=== PATIENT | male | born 1955 | race Caucasian/White ===

== ENCOUNTER 2018-02-18 04:28 | Outpatient (CLI) | payer OTHER | END 2018-02-18 04:29 | disposition critical access hospital (66) | LOC: EMS 04:28 | PROVIDERS: ATTEND Surgery | DX: R06.00 Dyspnea, unspecified (principal); R07.89 Other chest pain; R11.2 Nausea with vomiting, unspecified; R19.7 Diarrhea, unspecified | CPT/HCPCS: A0425; A0427 ==

== ENCOUNTER 2018-02-18 04:52 | Emergency (ER) | payer OTHER ==
[2018-02-18] MEDS ORDERED: ONDANSETRON 4 MG/2 ML VIAL IVP STA (04:57)
[2018-02-18] MEDS ORDERED: SODIUM CHLORIDE 0.9% 1,000 ML IV ONE (04:57)
[2018-02-18 05:25] LABS: BASOPHILS % (AUTO) 0.5 %; EOSINOPHILS % (AUTO) 0.6 %; HGB - HEMOGLOBIN 14.1 g/dL (14.0-18.0); LYMPHOCYTES # (AUTO) 1.5 10^3/uL (1.5-3.5); LYMPHOCYTES % (AUTO) 23.7 %; MEAN CORPUSCULAR HEMOGLOBIN 30.8 pg (27.0-31.0); MEAN CORPUSCULAR HGB CONC 34.7 g/dL (32.0-36.0); MEAN CORPUSCULAR VOLUME 88.8 fL (80.0-94.0); MEAN PLATELET VOLUME 7.6 fL (7.4-11.4); MONOCYTES # (AUTO) 0.4 10^3/uL (0.0-1.0); MONOCYTES % (AUTO) 6.4 %; NEUTROPHILS # (AUTO) 4.4 10^3/uL (1.5-6.6); NEUTROPHILS % (AUTO) 68.8 %; PLT - PLATELET COUNT 176 10^3/uL (130-450); RED BLOOD COUNT 4.58 10^6/uL (4.70-6.10); RED CELL DISTRIBUTION WIDTH 13.5 % (12.0-15.0); WHITE BLOOD COUNT 6.4 x10^3/uL (4.8-10.8)
[2018-02-18 05:39] LABS: ALBUMIN 3.4 g/dL (3.2-5.5); ALBUMIN/GLOBULIN RATIO 1.3 (1.0-2.2); BILIRUBIN,TOTAL 0.4 mg/dL (0.2-1.0); CALCIUM 8.4 mg/dL (8.5-10.3); TOTAL PROTEIN 6.1 g/dL (6.7-8.2)
[2018-02-18] MEDS ORDERED: MORPHINE 10 MG/ML VIAL IVP STA (05:54)
[2018-02-18] MEDS ORDERED: POTASSIUM CHLORIDE 20 MEQ TABLET PO STA (05:54)
--- NOTE | 2018-02-18 06:17 | ED Physician Documentation ---
History of Present Illness - Stated complaint Stated Complaint: N/V/D - Chief complaint Chief Complaint: Abd Pain - History obtained from History obtained from: Patient - Additonal information Additional information: 62-year-old male presents the emergency department with nausea, vomiting and diarrhea which started around 3 AM. The patient had associated epigastric cramping and felt lightheaded and dizzy with the vomiting and diarrhea. The patient currently denies any active pain. No specific triggering factors. The patient reports symptoms as moderate but much improved now. Review of Systems Constitutional: reports: Chills, Fatigue. denies: Fever Eyes: denies: Discharge Ears: denies: Ear pain Nose: denies: Congestion Throat: denies: Sore throat Cardiac: denies: Chest pain / pressure Respiratory: denies: Dyspnea GI: reports: Abdominal Pain, Nausea, Vomiting, Diarrhea : denies: Dysuria Skin: denies: Rash Neurologic: reports: Generalized weakness PD PAST MEDICAL HISTORY - Past Medical History Past Medical History: Yes Cardiovascular: Hypertension - Past Surgical History Past Surgical History: Yes - Present Medications Home Medications: Ambulatory Orders Medication Instructions Recorded Confirmed Metoprolol Tartrate 25 mg PO DAILY 11/29/14 03/01/15 hydroCHLOROthiazide 25 mg PO DAILY 11/29/14 03/01/15 [Hydrochlorothiazide] Ondansetron Odt [Zofran] 4 mg TL Q6H PRN #30 tablet 02/18/18 - Allergies Allergies/Adverse Reactions: Allergies Allergy/AdvReac Type Severity Reaction Status Date / Time No Known Drug Allergies Allergy Verified 02/18/18 05:14 - Social History Does the pt smoke?: No Smoking Status: Never smoker Does the pt drink ETOH?: No Does the pt have substance abuse?: No - Immunizations Immunizations are current?: Yes - POLST Patient has POLST: No PD ED PE NORMAL - General General: Alert and oriented X 3, No acute distress - HEENT HEENT: Atraumatic, PERRL, EOMI, Ears normal - Cardiac Cardiac: RRR, Strong equal pulses - Respiratory Respiratory: No respiratory distress, Clear bilaterally - Abdomen Abdomen: Soft, Non tender, Non distended - Derm Derm: Normal color - Extremities Extremities: No deformity, Normal ROM s pain - Neuro Neuro: Alert and oriented X 3, Normal speech - Psych Psych: Normal affect Results - Vitals Vitals: Vital Signs - 24 hr 02/18/18 02/18/18 02/18/18 04:53 05:12 06:09 Temperature 36.5 C Heart Rate 56 L 47 L 48 L Respiratory 22 13 14 Rate Blood Pressure 152/89 H 147/76 H O2 Saturation 95 98 97 Oxygen O2 Source Room air - EKG (time done) No standard instances Rate: Rate (enter#) (49 BPM ) Rhythm: Sinus bradycardia [place]: Normal Intervals: Normal AR QRS: Normal Ischemia: Normal ST segments - Labs Labs: Laboratory Tests 02/18/18 02/18/18 02/18/18 05:20 05:20 05:20 WBC 6.4 RBC 4.58 L Hgb 14.1 Hct 40.7 L MCV 88.8 MCH 30.8 MCHC 34.7 RDW 13.5 Plt Count 176 MPV 7.6 Neut # (Auto) 4.4 Lymph # (Auto) 1.5 [place] # (Auto) 0.4 Eos # (Auto) 0.0 Baso # (Auto) 0.0 Absolute Nucleated RBC 0.00 Nucleated RBC % 0.0 Sodium 138 Potassium 3.0 L Chloride 102 Carbon Dioxide 26 Anion Gap 10.0 BUN 15 Creatinine 1.0 Estimated GFR (MDRD) 76 L Glucose 123 H Calcium 8.4 L Total Bilirubin 0.4 AST 26 ALT 23 Alkaline Phosphatase 56 Troponin I < 0.04 Total Protein 6.1 L Albumin 3.4 Globulin 2.7 Albumin/Globulin Ratio 1.3 Lipase 30 - Rads (name of study) Acute Abdominal Series Radiology: Final report received (No acute process seen in the chest or abdomen. ) PD MEDICAL DECISION MAKING - ED course ED course: The patient's workup does not reveal any significant abnormality, the patient's symptoms are more suggestive of a viral process or possibly a foodborne reaction. On reevaluation the patient is resting comfortably and still has no active abdominal pain. The patient still reports some mild nausea. Presently, the patient appears appropriate for discharge and ongoing outpatient management. Presently, there is no findings to suggest a intra-abdominal process that would necessitate CT scan. I discussed the findings with the patient and recommended close follow-up with primary care. I discussed warning signs and recommended returning to the emergency department immediately for any worsening or any concerns. - Sepsis Event Vital Signs: Vital Signs - 24 hr 02/18/18 02/18/18 02/18/18 04:53 05:12 06:09 Temperature 36.5 C Heart Rate 56 L 47 L 48 L Respiratory 22 13 14 Rate Blood Pressure 152/89 H 147/76 H O2 Saturation 95 98 97 Oxygen O2 Source Room air Departure - Departure Disposition: 01 Home, Self Care Clinical Impression: Nausea vomiting and diarrhea, Abdominal cramping, Hypokalemia Condition: Good Instructions: Abdominal Pain, ED Diet Vomiting Diarrhea, Hypokalemia Dc Prescriptions: Ondansetron Odt [Zofran] 4 mg TL Q6H PRN #30 tablet PRN Reason: Nausea / Vomiting Comments: Please follow-up with primary care this week for recheck. Please return back to the emergency department immediately for increasing nausea, vomiting, inability to hydrate, abdominal pain, worsening symptoms or any concerns.
--- NOTE | 2018-02-18 06:36 | XRAY Report ---
Reason: n/v/d Procedure Date: 02/18/2018 Accession Number: [id number] / [id number] Procedure: XR - Abdomen Acute CPT Code: FULL RESULT: EXAM: ABDOMINAL SERIES AND PA CHEST EXAM DATE: 02/18/2018 06:05 AM. CLINICAL HISTORY: Nausea, vomiting, diarrhea. COMPARISON: CHEST 2 VIEW PA/LAT 11/29/2014 12:53 PM. TECHNIQUE: 2 views abdomen and 1 view chest. FINDINGS: CHEST: Lungs/Pleura: No focal opacities. No effusion or pneumothorax. Mediastinum: Within exam limitations, cardiomediastinal contour is normal. ABDOMEN: Bowel Gas Pattern: Within normal limits. No dilated loops or abnormal fluid levels. Free Air: None. Other: Previous right proximal femur surgery. IMPRESSION: No acute process seen in the chest or abdomen. RADIA
[2018-02-18] MEDS ORDERED: diphenhydrAMINE INJ 50 MG/ML VIAL IVP STA (06:39)
[2018-02-18] MEDS ORDERED: PROMETHAZINE INJ 25 MG in SODIUM CHLORIDE 0.9% 50 ML IV STA (06:39)
[2018-02-18 07:20] VITALS: BP 129/85
== END 2018-02-18 07:36 | disposition home or self-care (01) ==
LOC: EDUNIT# → ED 04:52
DX: R11.2 Nausea with vomiting, unspecified (principal); R19.7 Diarrhea, unspecified; R10.9 Unspecified abdominal pain; E87.6 Hypokalemia; I10 Essential (primary) hypertension
CPT/HCPCS: 36415; 74022; 80053; 83690; 84484; 85025; 93005; 96361; 96365; 96375; 99283; A9270; J1200; J7040

== ENCOUNTER 2018-08-14 10:53 | Outpatient (CLI) | payer OTHER | END 2018-08-14 10:54 | disposition home or self-care (01) | LOC: SC 10:53 | PROVIDERS: ATTEND Internal Medicine Pulmonary Disease | DX: G47.33 Obstructive sleep apnea (adult) (pediatric) (principal); E66.01 Morbid (severe) obesity due to excess calories; Z68.41 Body mass index [BMI] 40.0-44.9, adult | CPT/HCPCS: 99203; 99212 ==

== ENCOUNTER 2018-09-02 20:20 | Outpatient (CLI) | payer OTHER | END 2018-09-02 20:21 | disposition home or self-care (01) | LOC: SC 20:20 | PROVIDERS: ATTEND Internal Medicine Pulmonary Disease | DX: G47.61 Periodic limb movement disorder (principal) | CPT/HCPCS: 95810 ==

== ENCOUNTER 2018-09-24 12:56 | Outpatient (CLI) | payer OTHER | END 2018-09-24 12:57 | disposition home or self-care (01) | LOC: SC 12:56 | PROVIDERS: ATTEND Internal Medicine Pulmonary Disease | DX: G47.33 Obstructive sleep apnea (adult) (pediatric) (principal) | CPT/HCPCS: 99212; 99213 ==

== ENCOUNTER 2019-08-04 17:45 | Emergency (ER) | payer OTHER ==
[2019-08-04 18:12] VITALS: BP 167/106
--- NOTE | 2019-08-04 18:31 | ED Physician Documentation ---
PD HPI URI - Stated complaint Stated Complaint: COLD SYMPTOMS - Chief complaint Chief Complaint: Fever - History obtained from History obtained from: Patient - History of Present Illness Timing - onset: Other (Sick for about 4 days with nonproductive cough, runny nose and sneezing. Also low-grade fevers. His is sick with a similar illness. No recent travel.) Review of Systems Constitutional: reports: Myalgias. denies: Chills, Fatigue Nose: reports: Rhinorrhea / runny nose Throat: denies: Sore throat Respiratory: reports: Cough. denies: Dyspnea PD PAST MEDICAL HISTORY - Past Medical History Cardiovascular: Hypertension - Past Surgical History Past Surgical History: Yes - Present Medications Home Medications: Ambulatory Orders Medication Instructions Recorded Confirmed Metoprolol Tartrate 25 mg PO DAILY 11/29/14 03/01/15 hydroCHLOROthiazide 25 mg PO DAILY 11/29/14 03/01/15 [Hydrochlorothiazide] Ondansetron Odt [Zofran] 4 mg TL Q6H PRN #30 tablet 02/18/18 - Allergies Allergies/Adverse Reactions: Allergies Allergy/AdvReac Type Severity Reaction Status Date / Time No Known Drug Allergies Allergy Verified 08/04/19 18:09 - Social History Does the pt smoke?: No Smoking Status: Never smoker Does the pt drink ETOH?: No Does the pt have substance abuse?: No - Immunizations Immunizations are current?: Yes - POLST Patient has POLST: No PD ED PE NORMAL - Vitals Vital signs reviewed: Yes - General General: Alert and oriented X 3, No acute distress - HEENT HEENT: Ears normal, Pharynx benign - Neck Neck: Supple, no meningeal sign, No bony TTP - Cardiac Cardiac: RRR, No murmur - Respiratory Respiratory: No respiratory distress, Clear bilaterally - Abdomen Abdomen: Non tender - Derm Derm: No rash - Neuro Neuro: Alert and oriented X 3, Normal speech Results - Vitals Vitals: Vital Signs - 24 hr 08/04/19 18:09 Temperature 37.1 C Heart Rate 62 Respiratory 18 Rate Blood Pressure 167/106 H O2 Saturation 98 Oxygen O2 Source Room air PD MEDICAL DECISION MAKING - ED course ED course: 63-year-old gentleman with viral URI, his significant other is sick with a similar illness. There is nothing to suggest a bacterial etiology, coronavirus is considered but they do not fit his current ALISIA criteria for testing. Departure - Departure Disposition: 01 Home, Self Care Clinical Impression: Viral syndrome Condition: Good Record reviewed to determine appropriate education?: Yes Instructions: ED Viral Syndrome Comments: Tylenol or ibuprofen as needed for the aches and pains. Drink plenty of fluids. Return if you worsen or develop high fevers or significant shortness of breath.
== END 2019-08-04 18:37 | disposition home or self-care (01) ==
LOC: ED 17:45
DX: B34.9 Viral infection, unspecified (principal); I10 Essential (primary) hypertension
CPT/HCPCS: 87275; 87276; 99282; 99283

== ENCOUNTER 2019-08-18 14:43 | Emergency (ER) | payer OTHER ==
[2019-08-18 14:50] VITALS: BP 148/86
--- NOTE | 2019-08-18 15:18 | ED Physician Documentation ---
History of Present Illness - Stated complaint Stated Complaint: SCHUSTER, RUNNY NOSE, LOWER BACK/SIDE PX - Chief complaint Chief Complaint: General - History obtained from History obtained from: Patient (He has been sick for about 2 weeks with cough, runny nose. He had some chills earlier but not currently. He is mildly short of breath and has a productive cough. He feels like it is in his bronchial tubes, not his lungs.) Review of Systems Constitutional: reports: Fatigue. denies: Fever, Chills Nose: reports: Rhinorrhea / runny nose Throat: denies: Sore throat Cardiac: denies: Chest pain / pressure, Palpitations Respiratory: reports: Dyspnea, Cough PD PAST MEDICAL HISTORY - Past Medical History Cardiovascular: Hypertension - Past Surgical History Past Surgical History: Yes - Present Medications Home Medications: Ambulatory Orders Medication Instructions Recorded Confirmed Albuterol Sulf [Ventolin Hfa 1 - 2 puffs INH Q4HR PRN #1 inhaler 08/18/19 Inhaler] Lisinopril [Prinivil] mg PO 08/18/19 - Allergies Allergies/Adverse Reactions: Allergies Allergy/AdvReac Type Severity Reaction Status Date / Time No Known Drug Allergies Allergy Verified 08/18/19 14:50 - Social History Does the pt smoke?: No Smoking Status: Never smoker Does the pt drink ETOH?: No Does the pt have substance abuse?: No - Immunizations Immunizations are current?: Yes - POLST Patient has POLST: No PD ED PE NORMAL - Vitals Vital signs reviewed: Yes - General General: Alert and oriented X 3, No acute distress - HEENT HEENT: PERRL, EOMI, Ears normal - Neck Neck: Supple, no meningeal sign, No bony TTP - Cardiac Cardiac: RRR, No murmur - Respiratory Respiratory: No respiratory distress, Clear bilaterally - Abdomen Abdomen: Non tender - Derm Derm: Normal color, Warm and dry, No rash - Extremities Extremities: No edema, No calf tenderness / cord - Neuro Neuro: Alert and oriented X 3, Normal speech - Psych Psych: Normal mood, Normal affect Results - Vitals Vitals: Vital Signs - 24 hr 08/18/19 14:48 Temperature 36.8 C Heart Rate 68 Respiratory 16 Rate Blood Pressure 148/86 H O2 Saturation 97 Oxygen O2 Source Room air - Rads (name of study) 2v chest Radiology: EMP read contemporaneously (normal) PD MEDICAL DECISION MAKING - ED course ED course: 63-year-old gentleman with apparent viral bronchitis, vital signs and exam are reassuring as is his chest x-ray. Conservative care and a beta agonist were prescribed. Signs and symptoms to watch out and return for were discussed. Departure - Departure Disposition: 01 Home, Self Care Clinical Impression: Viral bronchitis Condition: Good Record reviewed to determine appropriate education?: Yes Instructions: ED Upper Resp Infec No Abx Tx Prescriptions: Albuterol Sulf [Ventolin Hfa Inhaler] 1 - 2 puffs INH Q4HR PRN #1 inhaler PRN Reason: Shortness Of Air/Wheezing Comments: Your chest x-ray is clear, there is no evidence of a bacterial infection, return if worsening or if you run a fever again. Until then the albuterol inhaler may help with the feeling of congestion in your bronchial tubes. Follow-up with your doctor in 1 week. Blood pressure check with them then too. Discharge Date/Time: 08/18/19 16:11
--- NOTE | 2019-08-18 15:57 | XRAY Report ---
Reason: cough Procedure Date: 08/18/2019 Accession Number: [id number] / [id number] Procedure: XR - Chest 2 View X-Ray CPT Code: 80058 Final Report FULL RESULT: EXAM: CHEST RADIOGRAPHY EXAM DATE: 08/18/2019 03:22 PM. CLINICAL HISTORY: Cough. COMPARISON: ABDOMEN ACUTE 02/18/2018 5:28 AM CHEST 2 VIEW PA/LAT 11/29/2014 12:53 PM. TECHNIQUE: 2 views. FINDINGS: Lungs/Pleura: No focal opacities evident. No pleural effusion. No pneumothorax. Normal volumes. Mediastinum: Heart and mediastinal contours are unremarkable. Other: None. IMPRESSION: Negative chest. RADIA
== END 2019-08-18 16:11 | disposition home or self-care (01) ==
LOC: ED 14:43
DX: I10 Essential (primary) hypertension (principal); J20.8 Acute bronchitis due to other specified organisms
CPT/HCPCS: 71046; 99283; 99284

== ENCOUNTER 2020-01-26 03:44 | Emergency (ER) | payer OTHER ==
--- NOTE | 2020-01-26 03:45 | ED Physician Documentation ---
History of Present Illness - Stated complaint Stated Complaint: CP - History obtained from History obtained from: Patient - Additonal information Additional information: 64-year-old male with chief complaint of shortness of breath progressively worsening over the last 4 days with exertional dyspnea without cough or fever denies any history of [place] or stroke or chronic lung disease. Tonight he woke up from sleep and came to the emergency department for evaluation denies any chest pain currently. Reports shortness of breath on deep inspiration. Review of Systems Constitutional: reports: Reviewed and negative Eyes: reports: Reviewed and negative Ears: reports: Reviewed and negative Nose: reports: Reviewed and negative Throat: reports: Reviewed and negative Cardiac: reports: Reviewed and negative Respiratory: reports: Dyspnea GI: reports: Reviewed and negative : reports: Reviewed and negative Skin: reports: Reviewed and negative Musculoskeletal: reports: Reviewed and negative Neurologic: reports: Reviewed and negative Psychiatric: reports: Reviewed and negative Endocrine: reports: Reviewed and negative Immunocompromised: reports: Reviewed and negative PD PAST MEDICAL HISTORY - Past Medical History Cardiovascular: Hypertension - Past Surgical History Past Surgical History: Yes - Present Medications Home Medications: Ambulatory Orders Medication Instructions Recorded Confirmed Albuterol Sulf [Ventolin Hfa 1 - 2 puffs INH Q4HR PRN #1 inhaler 08/18/19 Inhaler] Lisinopril [Prinivil] mg PO 08/18/19 Apixaban [Eliquis] 10 mg PO BID 30 Days #60 tablet 01/26/20 - Allergies Allergies/Adverse Reactions: Allergies Allergy/AdvReac Type Severity Reaction Status Date / Time No Known Drug Allergies Allergy Verified 01/26/20 03:54 - Social History Does the pt smoke?: No Smoking Status: Never smoker Does the pt drink ETOH?: No Does the pt have substance abuse?: No - Immunizations Immunizations are current?: Yes - POLST Patient has POLST: No PD ED PE NORMAL - Vitals Vital signs reviewed: Yes - General General: Alert and oriented X 3, No acute distress, Well developed/nourished - HEENT HEENT: PERRL - Neck Neck: Supple, no meningeal sign, No adenopathy, Thyroid normal, No JVD, No bruit - Cardiac Cardiac: RRR, No murmur, Strong equal pulses - Respiratory Respiratory: No respiratory distress, Clear bilaterally - Abdomen Abdomen: Normal bowel sounds, Soft, Non tender, Non distended, No organomegaly, Other (no midline abdominal pulsatile mass) - Derm Derm: Warm and dry - Extremities Extremities: No deformity, No tenderness to palpate, Normal ROM s pain, No edema, No calf tenderness / cord - Neuro Neuro: Alert and oriented X 3, still operator gin 2-12 intact, No motor deficit, No sensory deficit, Normal speech - Psych Psych: Normal mood, Normal affect Results - Vitals Vitals: Vital Signs - 24 hr 01/26/20 01/26/20 01/26/20 03:54 03:57 05:07 Temperature 36.9 C Heart Rate 70 76 69 Respiratory 18 18 16 Rate Blood Pressure 162/94 H 162/94 H 139/71 H O2 Saturation 98 97 97 01/26/20 01/26/20 01/26/20 06:22 08:00 09:52 Temperature Heart Rate 62 60 63 Respiratory 16 15 21 Rate Blood Pressure 133/75 H 147/76 H 150/81 H O2 Saturation 97 97 98 01/26/20 01/26/20 11:00 12:12 Temperature 36.8 C Heart Rate 62 60 Respiratory 17 22 Rate Blood Pressure 138/75 H 160/89 H O2 Saturation 99 98 Oxygen O2 Source Room air - EKG (time done) 03:52 Rate: Other (no STEMI) - Labs Labs: Laboratory Tests 01/26/20 01/26/20 01/26/20 04:05 04:05 04:05 WBC 8.5 RBC 4.87 Hgb 15.2 Hct 44.3 MCV 91.0 MCH 31.2 H MCHC 34.3 RDW 12.6 Plt Count 201 MPV 9.2 Neut # (Auto) 5.7 Lymph # (Auto) 2.0 [place] # (Auto) 0.7 Eos # (Auto) 0.1 Baso # (Auto) 0.0 Absolute Nucleated RBC 0.00 Nucleated RBC % 0.0 PT 11.7 INR 1.0 APTT 27.1 D-Dimer 367.4 H Sodium 136 Potassium 3.8 Chloride 100 L Carbon Dioxide 26 Anion Gap 10.0 BUN 14 Creatinine 1.0 Estimated GFR (MDRD) 75 L Glucose 131 H Calcium 9.1 Total Bilirubin 0.5 AST 17 ALT 19 Alkaline Phosphatase 69 Total Creatine Kinase 163 Troponin I High Sens B-Natriuretic Peptide Total Protein 6.9 Albumin 3.8 Globulin 3.1 Albumin/Globulin Ratio 1.2 Lipase 28 01/26/20 01/26/20 04:05 04:05 WBC RBC Hgb Hct MCV MCH MCHC RDW Plt Count MPV Neut # (Auto) Lymph # (Auto) [place] # (Auto) Eos # (Auto) Baso # (Auto) Absolute Nucleated RBC Nucleated RBC % PT INR APTT D-Dimer Sodium Potassium Chloride Carbon Dioxide Anion Gap BUN Creatinine Estimated GFR (MDRD) Glucose Calcium Total Bilirubin AST ALT Alkaline Phosphatase Total Creatine Kinase Troponin I High Sens 4.0 B-Natriuretic Peptide 7 Total Protein Albumin Globulin Albumin/Globulin Ratio Lipase PD MEDICAL DECISION MAKING - ED course Complexity details: reviewed results, re-evaluated patient, considered differential (acs, pe, pna, bronchitis, chf, pleurisy, pleural effusion), d/w patient, d/w family, other (heart score 2, unable to PERC out secondary to age. patient signed out at shift change to dr. janina willis. ) ED course: 64 y/o m w sob, d dimer elevated, cta shows left sided pe. consulted hospitalist for recommendation. awaiting call back. patient signed out at shift change to dr. janina willis. patient updated on diagnosis and plan. Departure - Departure Disposition: Home, Self Care Clinical Impression: Pulmonary embolism and infarction DVT (deep venous thrombosis) Qualifiers: DVT location: lower extremity Affected thrombotic vein of extremity: calf muscle vein Chronicity: unspecified Laterality: right Qualified Code(s): I82.461 - Acute embolism and thrombosis of right calf muscular vein Condition: Stable Instructions: Embolism Pulmonary Dc Prescriptions: Apixaban [Eliquis] 10 mg PO BID 30 Days #60 tablet Comments: The CT scan of your chest shows a pulmonary embolism, or blood clot, in your left lung circulation. This appears to be coming from a blood clot you have in your leg. Your oxygen is good, and your other vital signs are normal. You have been evaluated by the grinder set up operator internal today, who does not feel that you require admission to the hospital at this time. You will be started on a "blood thinner" to help prevent further clot formation while your body gets rid of the clots that you have. Please follow-up with your primary care physician within the week for a recheck. If you begin to develop worsening shortness of breath or chest pain, or if you develop a fever and cough, please return to the emergency department. Discharge Date/Time: 01/26/20 12:20
[2020-01-26 04:16] LABS: BASOPHILS % (AUTO) 0.4 %; EOSINOPHILS # (AUTO) 0.1 10^3/uL (0.0-0.7); EOSINOPHILS % (AUTO) 0.7 %; HGB - HEMOGLOBIN 15.2 g/dL (14.0-18.0); LYMPHOCYTES % (AUTO) 23.9 %; MEAN CORPUSCULAR HEMOGLOBIN 31.2 pg (27.0-31.0); MEAN CORPUSCULAR HGB CONC 34.3 g/dL (32.0-36.0); MEAN PLATELET VOLUME 9.2 fL (7.4-11.4); MONOCYTES # (AUTO) 0.7 10^3/uL (0.0-1.0); MONOCYTES % (AUTO) 8.2 %; NEUTROPHILS # (AUTO) 5.7 10^3/uL (1.5-6.6); NEUTROPHILS % (AUTO) 66.2 %; PLT - PLATELET COUNT 201 10^3/uL (130-450); RED BLOOD COUNT 4.87 10^6/uL (4.70-6.10); RED CELL DISTRIBUTION WIDTH 12.6 % (12.0-15.0); WHITE BLOOD COUNT 8.5 x10^3/uL (4.8-10.8)
[2020-01-26 04:23] LABS: PT - PROTHROMBIN TIME 11.7 secs (9.9-12.6)
[2020-01-26 04:30] LABS: ALBUMIN 3.8 g/dL (3.2-5.5); ALBUMIN/GLOBULIN RATIO 1.2 (1.0-2.2); BILIRUBIN,TOTAL 0.5 mg/dL (0.2-1.0); CALCIUM 9.1 mg/dL (8.5-10.3); PARTIAL THROMBOPLASTIN TIME 27.1 secs (24.9-33.3); TOTAL PROTEIN 6.9 g/dL (6.7-8.2)
[2020-01-26 04:37] LABS: D-DIMER 367.4 ng/mL (200.0-255.0)
[2020-01-26] MEDS ORDERED: IOVERSOL 320 100 ML VIAL IVP ONE ×2 (05:10→05:52)
[2020-01-26] MEDS ORDERED: ENOXAPARIN 150 MG/ML SYRINGE SUBQ STA (07:09)
--- NOTE | 2020-01-26 07:41 | CT Report ---
PROCEDURE: ANGIO CHEST W/WO INDICATIONS: cp,sob, elevated d dimer CONTRAST: IV CONTRAST: Optiray 320 ml: 100 PO CONTRAST: *NO PO CONTRAST TECHNIQUE: After the administration of intravenous contrast, 2 mm thick sections acquired from the pulmonary api bita to the posterior costophrenic angles. 3-dimensional maximum intensity projection (MIP) coronal a nd sagittal reformats were then acquired through the thorax. For radiation dose reduction, the follow ing was used: automated exposure control, adjustment of mA and/or kV according to patient size. COMPARISON: Chest x-ray 01/26/2020 and 08/18/2019 FINDINGS: Image quality: Excellent. Pulmonary arteries: Defects noted within the segmental and subsegmental pulmonary arteries and left lower lobe compatible with pulmonary emboli. Lungs and pleura: Small area of consolidation noted in the posterior aspect of the left lung base whi ch could represent atelectasis or early pulmonary infarct. Trace left-sided pleural effusion. No pneu mothorax. Central and peripheral airways are patent. Mediastinum: Heart size is normal, without pericardial effusion. No mediastinal or hilar adenopathy . Thoracic aorta is normal in caliber and enhancement. Esophagus is normal in caliber, without hiat al hernia. Bones and chest wall: No suspicious bony lesions. Ribs and thoracic spine appear intact throughout. Spine degenerative disc disease and facet arthropathy are noted. The thyroid is normal. No axilla ry or supraclavicular adenopathy. Abdomen: Visualized upper abdominal solid organs appear normal in the early arterial phase of enhanc ement. IMPRESSION: 1. Abnormal study demonstrating pulmonary emboli in left lower lobe segmental and subsegmental pulmon yissel arteries. 2. Patchy consolidation in the left lung base which could represent atelectasis or early pulmonary in farct. 3. Trace left-sided pleural effusion. Reviewed by: Lauren Muir MD, PhD on 01/26/2020 7:40 AM PDT Approved by: Lauren Muir MD, PhD on 01/26/2020 7:40 AM PDT Station ID: [id number]
--- NOTE | 2020-01-26 09:58 | XRAY Report ---
PROCEDURE: Chest 1 View X-Ray INDICATIONS: Shortness of breath TECHNIQUE: One view of the chest was acquired. COMPARISON: 08/18/2019 and 11/29/2014. Correlation is also made with the accompanying chest CT angiogra m, 01/26/2020. Correlation is also made with abdomen plain films 02/18/2018 FINDINGS: Surgical changes and devices: None. Lungs and pleura: Low lung volumes can be seen, causing a carotid appearance to the lung markings. There is a small left-sided pleural effusion seen, which is much better demonstrated on the subsequen tly performed chest CT examination. No pneumothorax is seen. Mediastinum: The aorta is prominent and tortuous. The cardiac contours are within normal limits. Bones and chest wall: No suspicious bony lesions. Age-appropriate degenerative changes are seen. Overlying soft tissues appear unremarkable. IMPRESSION: Low lung volumes and a small left-sided pleural effusion. Note: No significant discrepancy from the preliminary report. Reviewed by: Haim Scales MD on 01/26/2020 8:57 AM MAREK Approved by: Haim Scales MD on 01/26/2020 8:57 AM MAREK Station ID: [id number]
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
--- NOTE | 2020-01-26 12:11 | Ultrasound Report ---
PROCEDURE: Duplex Ext Veins Bilateral INDICATIONS: Positive for pulmonary embolism. Evaluate for deep venous thrombosis. TECHNIQUE: Real-time imaging, as well as color and pulse Doppler interrogation, were performed of the deep veins of both legs from the inguinal ligament to the popliteal fossa. COMPARISON: Correlation is made with chest CT angiogram 01/26/2020. FINDINGS: The deep veins are normally compressible, and free of intraluminal thrombus. Color and pu lse Doppler demonstrate normal phasic intravascular flow. There is normal augmentation response to d istal compression maneuver. Superficial venous thrombosis can be seen on the right, with calf vein thrombosis. The right peronea l vein is not seen. The left peroneal vein is not seen. The left calf veins otherwise are unremarkable. IMPRESSION: No findings of deep venous thrombosis are seen. Superficial venous thrombosis can be seen involving the right superficial calf vein. Note: Concordant preliminary findings given by the baggage security checker upon the completion of the examination to Dr. Mix at 10:40 AM on 01/26/2020. Reviewed by: Haim Scales MD on 01/26/2020 11:10 AM [facility] Approved by: Haim Scales MD on 01/26/2020 11:10 AM [facility] Station ID: [id number]
[2020-01-26 12:13] VITALS: BP 160/89
== END 2020-01-26 12:20 | disposition home or self-care (01) ==
LOC: ED 03:44
DX: R07.81 Pleurodynia (principal); I51.7 Cardiomegaly; R94.31 Abnormal electrocardiogram [ECG] [EKG]
CPT/HCPCS: 36415; 71045; 71275; 80053; 82550; 83690; 83880; 84484; 85025; 85379; 85610; 85730; 93005; 93970; 96372; 99284; 99285; J1650; Q9967

== ENCOUNTER 2020-02-03 16:35 | Emergency (ER) | payer OTHER ==
[2020-02-03 17:11] LABS: BILIRUBIN,URINE NEGATIVE (NEGATIVE); GLUCOSE, URINE (UA) NEGATIVE (NEGATIVE); KETONES,URINE (UA) NEGATIVE (NEGATIVE); LEUKOCYTE ESTERASE, URINE NEGATIVE (NEGATIVE); NITRITE,URINE NEGATIVE (NEGATIVE); OCCULT BLOOD,URINE NEGATIVE (NEGATIVE); PH,URINE 6.5 PH (5.0-7.5); PROTEIN,URINE NEGATIVE (NEGATIVE); UROBILINOGEN,URINE 0.2 (NORMAL) E.U./dL (NORMAL)
[2020-02-03 17:17] LABS: CLARITY,URINE CLEAR (CLEAR)
[2020-02-03 17:34] LABS: BASOPHILS % (AUTO) 0.1 %; EOSINOPHILS # (AUTO) 0.1 10^3/uL (0.0-0.7); EOSINOPHILS % (AUTO) 0.7 %; LYMPHOCYTES # (AUTO) 1.8 10^3/uL (1.5-3.5); MEAN CORPUSCULAR HEMOGLOBIN 30.9 pg (27.0-31.0); MEAN CORPUSCULAR HGB CONC 34.5 g/dL (32.0-36.0); MEAN CORPUSCULAR VOLUME 89.7 fL (80.0-94.0); MEAN PLATELET VOLUME 9.1 fL (7.4-11.4); MONOCYTES # (AUTO) 0.4 10^3/uL (0.0-1.0); MONOCYTES % (AUTO) 5.3 %; NEUTROPHILS # (AUTO) 4.5 10^3/uL (1.5-6.6); NEUTROPHILS % (AUTO) 66.5 %; PLT - PLATELET COUNT 251 10^3/uL (130-450); RED BLOOD COUNT 5.17 10^6/uL (4.70-6.10); RED CELL DISTRIBUTION WIDTH 12.2 % (12.0-15.0); WHITE BLOOD COUNT 6.8 x10^3/uL (4.8-10.8)
[2020-02-03 17:45] LABS: ALBUMIN 3.7 g/dL (3.2-5.5); ALBUMIN/GLOBULIN RATIO 1.1 (1.0-2.2); BILIRUBIN,TOTAL 0.5 mg/dL (0.2-1.0); CALCIUM 9.6 mg/dL (8.5-10.3); CREATININE 1.1 mg/dL (0.6-1.2); TOTAL PROTEIN 7.2 g/dL (6.7-8.2)
--- NOTE | 2020-02-03 19:39 | ED Physician Documentation ---
History of Present Illness - Stated complaint Stated Complaint: BACK PAIN - Chief complaint Chief Complaint: Abd Pain - History obtained from History obtained from: Patient - History of Present Illness Timing: How many days ago (2) Pain level max: 7 Pain level now: 5 - Additonal information Additional information: 64-year-old male with right flank pain. Started approximately 2 to 3 days ago. Worse with movement and better with rest. No fevers. No vomiting. States it feels similar to a prior kidney stone he had several years ago. No fevers. No chills. Denies any trauma. No numbness or tingling. Review of Systems Constitutional: denies: Fever, Chills Respiratory: denies: Cough GI: denies: Nausea, Vomiting, Diarrhea Skin: denies: Rash Musculoskeletal: denies: Neck pain, Back pain Neurologic: denies: Headache PD PAST MEDICAL HISTORY - Past Medical History Past Medical History: Yes Cardiovascular: Hypertension, Deep vein thrombosis, Pulmonary embolism Respiratory: Sleep apnea, CPAP use Neuro: Peripheral neuropathy : Kidney stones HEENT: None Psych: Depression Musculoskeletal: Osteoarthritis Derm: Other - Past Surgical History Past Surgical History: Yes General: Appendectomy HEENT: Tonsil/Adenoidectomy - Present Medications Home Medications: Ambulatory Orders Medication Instructions Recorded Confirmed Albuterol Sulf [Ventolin Hfa 1 - 2 puffs INH Q4HR PRN #1 inhaler 08/18/19 Inhaler] Lisinopril [Prinivil] mg PO 08/18/19 Apixaban [Eliquis] 10 mg PO BID 30 Days #60 tablet 01/26/20 Methocarbamol [Robaxin-750] 750 mg PO Q8H #10 tablet 02/03/20 - Allergies Allergies/Adverse Reactions: Allergies Allergy/AdvReac Type Severity Reaction Status Date / Time No Known Drug Allergies Allergy Verified 02/03/20 17:01 - Social History Does the pt smoke?: No Smoking Status: Never smoker Does the pt drink ETOH?: No Does the pt have substance abuse?: No - Immunizations Immunizations are current?: Yes - POLST Patient has POLST: No PD ED PE NORMAL - Vitals Vital signs reviewed: Yes - General General: Alert and oriented X 3 - HEENT HEENT: Moist mucous membranes - Neck Neck: Supple, no meningeal sign - Cardiac Cardiac: RRR, Strong equal pulses - Respiratory Respiratory: No respiratory distress, Clear bilaterally - Abdomen Abdomen: Soft, Non tender, Non distended - Back Back: No CVA TTP, No spinal TTP - Derm Derm: Warm and dry - Extremities Extremities: No calf tenderness / cord - Neuro Neuro: Alert and oriented X 3 - Psych Psych: Normal mood, Normal affect Results - Vitals Vitals: Vital Signs - 24 hr 02/03/20 02/03/20 02/03/20 16:52 18:51 20:00 Temperature 37.0 C 37.2 C Heart Rate 83 70 63 Respiratory 16 16 17 Rate Blood Pressure 135/80 H 127/83 H 116/90 H O2 Saturation 96 97 99 02/03/20 02/03/20 20:23 21:27 Temperature 36.8 C 37.2 C Heart Rate 72 Respiratory 16 Rate Blood Pressure 163/96 H O2 Saturation 98 Oxygen O2 Source Room air - Labs Labs: Laboratory Tests 02/03/20 02/03/20 02/03/20 17:00 17:20 17:20 WBC 6.8 RBC 5.17 Hgb 16.0 Hct 46.4 MCV 89.7 MCH 30.9 MCHC 34.5 RDW 12.2 Plt Count 251 MPV 9.1 Neut # (Auto) 4.5 Lymph # (Auto) 1.8 [place] # (Auto) 0.4 Eos # (Auto) 0.1 Baso # (Auto) 0.0 Absolute Nucleated RBC 0.00 Nucleated RBC % 0.0 Sodium 140 Potassium 4.0 Chloride 106 Carbon Dioxide 26 Anion Gap 8.0 BUN 13 Creatinine 1.1 Estimated GFR (MDRD) 68 L Glucose 116 H Calcium 9.6 Total Bilirubin 0.5 AST 18 ALT 21 Alkaline Phosphatase 74 Total Protein 7.2 Albumin 3.7 Globulin 3.5 Albumin/Globulin Ratio 1.1 Lipase 29 Urine Color YELLOW Urine Clarity CLEAR Urine pH 6.5 Ur Specific [place] 1.025 Urine Protein NEGATIVE Urine Glucose (UA) NEGATIVE Urine Ketones NEGATIVE Urine Occult Blood NEGATIVE Urine Nitrite NEGATIVE Urine Bilirubin NEGATIVE Urine Urobilinogen 0.2 (NORMAL) Ur Leukocyte Esterase NEGATIVE Ur Microscopic Review NOT INDICATED Urine Culture Comments NOT INDICATED - Rads (name of study) CT abd pelvis Radiology: Prelim report reviewed, EMP read contemporaneously, See rad report PD MEDICAL DECISION MAKING - ED course Complexity details: reviewed results, re-evaluated patient, considered differential, d/w patient ED course: Patient is a 64-year-old male who presents with right low back pain. No acute findings on CT scan, laboratory testing. Likely muscular. Worse with movement and better with rest. We will trial on muscle relaxants for home. Patient is well-appearing, nontoxic. Afebrile. Patient counseled regarding signs and symptoms for which I believe and urgent re-evaluation would be necessary. Patient with good understanding of and agreement to plan and is comfortable going home at this time This document was made in part using voice recognition software. While efforts are made to proofread this document, sound alike and grammatical errors may occur. Departure - Departure Disposition: Home, Self Care Clinical Impression: Back spasm Condition: Good Instructions: ED Spasm Back No Trauma Follow-Up: Alden Franco ARNP [Primary Care Provider] - Within 1 week Prescriptions: Methocarbamol [Robaxin-750] 750 mg PO Q8H #10 tablet Comments: Follow-up with your doctor for further care. Your CT scan and laboratory testing do not show any acute abnormalities. This is likely muscle spasm. Discharge Date/Time: 02/03/20 21:30
--- NOTE | 2020-02-03 20:29 | CT Report ---
PROCEDURE: Abdomen/Pelvis WO INDICATIONS: R flank pain, h/o renal stones TECHNIQUE: Noncontrast 5 mm thick sections acquired from the diaphragms to the symphysis. 5 mm coronal and sagi ttal reformats were then performed. For radiation dose reduction, the following was used: automated exposure control, adjustment of mA and/or kV according to patient size. COMPARISON: Prior 01/26/2020 CT of chest. FINDINGS: Image quality: Reduced by absence of both oral and intravenous contrast.. ABDOMEN: Lung bases: Lung bases are mildly abnormal with a mild degree of alveolar infiltration at the left l selin base posteriorly, previously present 01/26/2020. A small amount of pleural fluid is present at th e deep costophrenic sulcus on the left also. Heart size is normal. Solid organs: Liver and spleen are normal in size. Gallbladder appears normal Pancreas is normal i n contours. No adrenal nodules. Kidneys are normal in size, without hydronephrosis or nephrolithias is. Peritoneum and bowel: Unenhanced bowel loops demonstrate normal wall thickness and caliber. No free fluid or air. Nodes and vessels: No retroperitoneal or mesenteric adenopathy by size criteria. Aorta and inferior vena cava are normal in caliber. Miscellaneous: No ventral hernias. PELVIS: Genitourinary: Bladder wall thickness is normal. Miscellaneous: No inguinal hernias or adenopathy. Bones: No suspicious bony lesions. No vertebral body compression fractures. IMPRESSION: A source of right-sided flank pain is not seen. No right-sided hydronephrosis or nephrolithiasis is f ound. No inflammatory process along the right flank is seen. Incidental note is made of a residual sm all amount of pleural fluid and adjacent lung base atelectasis at the left lower hemithorax, in this patient with prior chest CT scanning 01/26/2020. Reviewed by: Davian aGrdner MD on 02/03/2020 8:28 PM PDT Approved by: Davian Gardner MD on 02/03/2020 8:28 PM PDT Station ID: [id number]
[2020-02-03] MEDS ORDERED: methocarbamoL 500 MG TABLET PO STA (21:17)
[2020-02-03 21:30] VITALS: BP 163/96
== END 2020-02-03 21:30 | disposition home or self-care (01) ==
LOC: ED 16:35
DX: M62.830 Muscle spasm of back (principal); I10 Essential (primary) hypertension; G62.9 Polyneuropathy, unspecified; Z86.718 Personal history of other venous thrombosis and embolism; Z86.711 Personal history of pulmonary embolism; Z87.442 Personal history of urinary calculi
CPT/HCPCS: 36415; 74176; 80053; 81003; 83690; 85025; 99284; A9270; 81001; 87086

== ENCOUNTER 2020-04-03 14:58 | Emergency (ER) | payer OTHER ==
--- NOTE | 2020-04-03 15:15 | ED Physician Documentation ---
PD HPI MALE - Stated complaint Stated Complaint: RT LEG PX - Chief complaint Chief Complaint: Ext Problem - History obtained from History obtained from: Patient - History of Present Illness Timing - onset: How many months ago (He states he has noticed some pain in the right inguinal area for the last month intermittently. It does not seem to be related to activity. There is some radiation of it into the right scrotal area. No lumps or sores. He notes worsening pain the last couple of days with tenderness in groin.) Timing - details: Gradual onset, Waxing and waning Associated symptoms: Testiclar pain (more in the epididymis area, not testicle per se.). No: Dysuria, Genital sore / lesion Similar symptoms before: Has not had sx before Review of Systems Constitutional: denies: Fever Nose: denies: Rhinorrhea / runny nose, Congestion Throat: denies: Sore throat Respiratory: denies: Cough GI: denies: Abdominal Pain, Nausea, Vomiting, Diarrhea : denies: Dysuria, Frequency, Discharge Skin: reports: Rash (sometimes mild inguinal yeast rash. Not currently.) Musculoskeletal: denies: Neck pain, Back pain Neurologic: denies: Focal weakness, Numbness PD PAST MEDICAL HISTORY - Past Medical History Cardiovascular: Hypertension, Deep vein thrombosis, Pulmonary embolism Respiratory: Sleep apnea, CPAP use Neuro: Peripheral neuropathy : Kidney stones HEENT: None Psych: Depression Musculoskeletal: Osteoarthritis Derm: Other - Past Surgical History Past Surgical History: Yes General: Appendectomy HEENT: Tonsil/Adenoidectomy - Present Medications Home Medications: Ambulatory Orders Medication Instructions Recorded Confirmed Albuterol Sulf [Ventolin Hfa 1 - 2 puffs INH Q4HR PRN #1 inhaler 08/18/19 Inhaler] Lisinopril [Prinivil] mg PO 08/18/19 Apixaban [Eliquis] 10 mg PO BID 30 Days #60 tablet 01/26/20 Methocarbamol [Robaxin-750] 750 mg PO Q8H #10 tablet 02/03/20 - Allergies Allergies/Adverse Reactions: Allergies Allergy/AdvReac Type Severity Reaction Status Date / Time No Known Drug Allergies Allergy Verified 04/03/20 15:12 - Social History Does the pt smoke?: No Smoking Status: Never smoker Does the pt drink ETOH?: No Does the pt have substance abuse?: No - Immunizations Immunizations are current?: Yes - POLST Patient has POLST: No PD ED PE NORMAL - Vitals Vital signs reviewed: Yes - General General: Alert and oriented X 3, Well developed/nourished - Cardiac Cardiac: RRR, No murmur - Respiratory Respiratory: Clear bilaterally - Abdomen Abdomen: Soft, Non tender, Non distended - Male Male : Other (He has tenderness in the right inguinal area without any palpable lump or mass. No hernia felt with stomach tightening. There is some tenderness in the right upper scrotal area; ? fullness. The testicle is normal and nontender.) - Rectal Rectal: Deferred - Back Back: No CVA TTP - Derm Derm: Normal color, Warm and dry, Other (No redness nor rash or signs of infection in the inguinal area.) Results - Vitals Vitals: Vital Signs - 24 hr 04/03/20 15:04 Temperature 36.8 C Heart Rate 84 Respiratory 17 Rate Blood Pressure 135/85 H O2 Saturation 99 Oxygen O2 Source Room air - Labs Labs: Laboratory Tests 04/03/20 14:20 Urine Color YELLOW Urine Clarity CLEAR Urine pH 6.0 Ur Specific [place] 1.020 Urine Protein NEGATIVE Urine Glucose (UA) NEGATIVE Urine Ketones NEGATIVE Urine Occult Blood NEGATIVE Urine Nitrite NEGATIVE Urine Bilirubin NEGATIVE Urine Urobilinogen 0.2 (NORMAL) Ur Leukocyte Esterase NEGATIVE Ur Microscopic Review NOT INDICATED Urine Culture Comments NOT INDICATED - Rads (name of study) scrotal u/s Radiology: Prelim report reviewed, EMP read contemporaneously (indirect inguinal hernia without signs of incarceration. ), See rad report PD MEDICAL DECISION MAKING - ED course Complexity details: re-evaluated patient (He is on a blood thinner so no NSAIDs for this. Tylenol as needed for pains. He declines stronger pain meds. ), considered differential (Tenderness without any palpable abnormality in the upper scrotum on the right and also in the right inguinal area. I do not feel a hernia. Consider inguinal strain. Can check a urine for signs of infection. Will get ultrasound of the testicle and scrotum.), d/w patient Departure - Departure Clinical Impression: Right inguinal pain, Indirect inguinal hernia Condition: Stable Record reviewed to determine appropriate education?: Yes Instructions: ED Hernia Inguinal Follow-Up: Rufus Geronimo MD [Provider Admit Priv/Credential] - Comments: It looks like your symptoms are caused by a scrotal hernia (indirect inguinal hernia). Use Tylenol if needed for pains every 4-6 hours. Continue your other usual medicines. Try to avoid heavy lifting or other things that may cause it to hurt more. Otherwise activity as tolerated. Follow-up with the general surgery, call for an appointment, to discuss the pros and cons of surgical repair of this. Return if any episodes of it having severe pain tenderness or associated with nausea vomiting.
[2020-04-03] MEDS ORDERED: ACETAMINOPHEN 325 MG TABLET PO STA (15:36)
[2020-04-03 15:54] LABS: BILIRUBIN,URINE NEGATIVE (NEGATIVE); GLUCOSE, URINE (UA) NEGATIVE (NEGATIVE); KETONES,URINE (UA) NEGATIVE (NEGATIVE); LEUKOCYTE ESTERASE, URINE NEGATIVE (NEGATIVE); NITRITE,URINE NEGATIVE (NEGATIVE); OCCULT BLOOD,URINE NEGATIVE (NEGATIVE); PROTEIN,URINE NEGATIVE (NEGATIVE); UROBILINOGEN,URINE 0.2 (NORMAL) E.U./dL (NORMAL)
[2020-04-03 15:56] LABS: CLARITY,URINE CLEAR (CLEAR)
[2020-04-03 17:41] VITALS: BP 145/88
--- NOTE | 2020-04-03 17:52 | Ultrasound Report ---
PROCEDURE: Testicle w/Doppler INDICATIONS: right inguinal and scrotal pain/tender TECHNIQUE: Real-time scanning was performed of the scrotum and testicles, with image documentation. Color and p ulse Doppler interrogation was performed of both testicles. COMPARISON: None. FINDINGS: Right: Testicle is normal in size at 3.3 x 2.2 x 2.4 cm, and homogenous in echotexture. Epididymis is normal in overall size and morphology. No varicoceles. Small hydrocele. Overlying scrotal skin i s normal in thickness. Left: Testicle is normal in size at 3.6 x 2.2 x 2.1 cm, and homogeneous in echotexture. Epididymis is normal in overall size and morphology. No varicoceles. Small hydrocele. Overlying scrotal skin i s normal in thickness. Doppler: Color and pulse Doppler demonstrate normal and symmetric arterial flow in both testicles. Incidental note of a fat-containing right inguinal hernia measuring 4.8 x 1.9 x 3.4 cm with hernia ne ck measuring approximately 1.4 cm in diameter. Although this is not reducible, there are no sonograph ic evidence to suggest strangulation. IMPRESSION: 1. Normal sonographic evaluation of the bilateral testicles. 2. Fat-containing right inguinal hernia which is nonreducible; however, no sonographic evidence to delcid ggest strangulation. Reviewed by: Cirilo Hawkins MD on 04/03/2020 4:50 PM [facility] Approved by: Cirilo Hawkins MD on 04/03/2020 4:50 PM [facility] Station ID: [id number]
== END 2020-04-03 17:43 | disposition home or self-care (01) ==
LOC: ED 14:58
DX: K40.30 Unilateral inguinal hernia, with obstruction, without gangrene, not specified as recurrent (principal); I10 Essential (primary) hypertension; G62.9 Polyneuropathy, unspecified; Z86.711 Personal history of pulmonary embolism; Z86.718 Personal history of other venous thrombosis and embolism; Z79.01 Long term (current) use of anticoagulants
CPT/HCPCS: 76870; 81003; 93975; 99284; A9270; 81001; 87086

== ENCOUNTER 2020-04-14 05:23 | Outpatient (CLI) | payer OTHER | END 2020-04-14 05:24 | disposition EMS.NT | LOC: EMS 05:23 | PROVIDERS: ATTEND Surgery | DX: R06.02 Shortness of breath (principal) ==

== ENCOUNTER 2020-07-21 18:50 | Emergency (ER) | payer OTHER ==
--- NOTE | 2020-07-21 19:34 | ED Physician Documentation ---
History of Present Illness - Stated complaint Stated Complaint: NAUSEA/DIZZY/CHILLS/FEVER - Chief complaint Chief Complaint: Cardiac - History obtained from History obtained from: Patient - History of Present Illness Timing: How many minutes ago (45) Pain level max: 6 Pain level now: 1 Improved by: rest Worsened by: exertion, standing up - Additonal information Additional information: patient was working on moving a heavy (400 pound) treadmill and while lying on his side working on this object, he had sudden onset chest discomfort, jaw pain, nausea, generalized weakness. He tried to stand up but found that he was too weak to do so and thus sat down, eventually gained strength back to be able to stand. Denies h/o similar symptoms. Denies dyspnea. No pleuritic component to the pain and the symptoms have nearly resolved by the time of this evaluation. No known h/o CAD. does have h/o PE for which he takes eliquis Review of Systems Constitutional: denies: Fever, Chills Cardiac: reports: Chest pain / pressure. denies: Palpitations, Pedal edema, Calf pain Respiratory: reports: Reviewed and negative GI: reports: Nausea. denies: Abdominal Pain, Vomiting : denies: Incontinent Musculoskeletal: denies: Neck pain, Back pain, Extremity pain, Extremity swelling Neurologic: reports: Generalized weakness. denies: Focal weakness, Numbness, Headache PD PAST MEDICAL HISTORY - Past Medical History Cardiovascular: Hypertension, Deep vein thrombosis, Pulmonary embolism Respiratory: Sleep apnea, CPAP use Neuro: Peripheral neuropathy : Kidney stones HEENT: None Psych: Depression Musculoskeletal: Osteoarthritis Derm: Other - Past Surgical History Past Surgical History: Yes General: Appendectomy HEENT: Tonsil/Adenoidectomy - Present Medications Home Medications: Ambulatory Orders Medication Instructions Recorded Confirmed Albuterol Sulf [Ventolin Hfa 1 - 2 puffs INH Q4HR PRN #1 inhaler 08/18/19 07/21/20 Inhaler] Apixaban [Eliquis] 10 mg PO BID 30 Days #60 tablet 01/26/20 07/21/20 Losartan [Cozaar] 07/21/20 - Allergies Allergies/Adverse Reactions: Allergies Allergy/AdvReac Type Severity Reaction Status Date / Time No Known Drug Allergies Allergy Verified 07/21/20 18:54 - Social History Does the pt smoke?: No Smoking Status: Never smoker Does the pt drink ETOH?: No Does the pt have substance abuse?: No - Immunizations Immunizations are current?: Yes - POLST Patient has POLST: No PD ED PE NORMAL - Vitals Vital signs reviewed: Yes - General General: Alert and oriented X 3, No acute distress, Well developed/nourished - HEENT HEENT: Moist mucous membranes - Neck Neck: Supple, no meningeal sign - Cardiac Cardiac: RRR, No murmur, No gallop, No rub - Respiratory Respiratory: No respiratory distress, Clear bilaterally - Abdomen Abdomen: Soft, Non tender - Back Back: No spinal TTP - Derm Derm: Normal color, Warm and dry - Extremities Extremities: No edema - Neuro Neuro: Alert and oriented X 3, 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 2-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, No motor deficit, No sensory deficit, Normal speech Results - Vitals Vitals: Vital Signs - 24 hr 07/21/20 07/21/20 07/21/20 18:54 19:20 20:00 Temperature 36 C L 36.3 C L Heart Rate 63 62 60 Respiratory 18 18 19 Rate Blood Pressure 178/82 H 156/102 H 190/98 H O2 Saturation 99 98 99 07/21/20 07/21/20 20:31 21:20 Temperature 36.9 C Heart Rate 65 61 Respiratory 16 17 Rate Blood Pressure 222/108 H 148/81 H O2 Saturation 100 100 Oxygen O2 Source Room air - EKG (time done) No standard instances Rate: Rate (enter#) (64) Rhythm: NSR [place]: Normal Intervals: Normal MT QRS: Normal Ischemia: Normal ST segments - Labs Labs: Laboratory Tests 07/21/20 07/21/20 07/21/20 19:40 19:40 19:40 WBC 9.8 RBC 4.97 Hgb 15.2 Hct 45.0 MCV 90.5 MCH 30.6 MCHC 33.8 RDW 12.5 Plt Count 188 MPV 9.2 Neut # (Auto) 8.3 H Lymph # (Auto) 1.1 L [place] # (Auto) 0.4 Eos # (Auto) 0.0 Baso # (Auto) 0.0 Absolute Nucleated RBC 0.00 Nucleated RBC % 0.0 Sodium 139 Potassium 4.1 Chloride 100 L Carbon Dioxide 26 Anion Gap 13.0 BUN 14 Creatinine 1.0 Estimated GFR (MDRD) 75 L Glucose 115 H Calcium 9.4 Total Bilirubin 0.5 AST 21 ALT 23 Alkaline Phosphatase 70 Troponin I High Sens 4.0 Total Protein 7.1 Albumin 4.0 Globulin 3.1 Albumin/Globulin Ratio 1.3 Lipase 26 - Rads (name of study) chest xray Radiology: Prelim report reviewed, See rad report PD MEDICAL DECISION MAKING - ED course Complexity details: reviewed results, re-evaluated patient, considered differential, d/w patient ED course: normal EKG, CXR, and unremarkable/reassuring blood test results including a normal high sensitivity troponin. His description of the event sounds suggestive of a near-syncopal episode, likely transiently hypotensive. No evidence of ACS and no dysrhythmia during ED observation, but instructed to follow up with PMD even if asymptomatic Departure - Departure Disposition: 01 Home, Self Care Clinical Impression: Chest pain Condition: Good Instructions: ED Chest Pain Atypical Unkn Cause Follow-Up: Alden Franco ARNP [Primary Care Provider] - (Call to arrange for next available appointment) Discharge Date/Time: 07/21/20 21:23
--- NOTE | 2020-07-21 19:34 | XRAY Report ---
PROCEDURE: Chest 1 View X-Ray INDICATIONS: Chest Pain TECHNIQUE: One view of the chest was acquired. COMPARISON: Chest x-ray 01/26/2020 FINDINGS: Surgical changes and devices: None. Lungs and pleura: No pleural effusions or pneumothorax. Lungs are clear. Mediastinum: Mediastinal contours appear normal. Heart size is enlarged. Bones and chest wall: No suspicious bony lesions. Overlying soft tissues appear unremarkable. IMPRESSION: No acute pulmonary process. Reviewed by: Deana Proctor MD on 07/21/2020 6:33 PM [facility] Approved by: Deana Proctor MD on 07/21/2020 6:33 PM [facility] Station ID: [id number]
[2020-07-21 19:49] LABS: BASOPHILS % (AUTO) 0.1 %; EOSINOPHILS % (AUTO) 0.1 %; HGB - HEMOGLOBIN 15.2 g/dL (14.0-18.0); LYMPHOCYTES # (AUTO) 1.1 10^3/uL (1.5-3.5); LYMPHOCYTES % (AUTO) 10.8 %; MEAN CORPUSCULAR HEMOGLOBIN 30.6 pg (27.0-31.0); MEAN CORPUSCULAR HGB CONC 33.8 g/dL (32.0-36.0); MEAN CORPUSCULAR VOLUME 90.5 fL (80.0-94.0); MEAN PLATELET VOLUME 9.2 fL (7.4-11.4); MONOCYTES # (AUTO) 0.4 10^3/uL (0.0-1.0); NEUTROPHILS # (AUTO) 8.3 10^3/uL (1.5-6.6); NEUTROPHILS % (AUTO) 84.6 %; PLT - PLATELET COUNT 188 10^3/uL (130-450); RED BLOOD COUNT 4.97 10^6/uL (4.70-6.10); RED CELL DISTRIBUTION WIDTH 12.5 % (12.0-15.0); WHITE BLOOD COUNT 9.8 x10^3/uL (4.8-10.8)
[2020-07-21 20:02] LABS: ALBUMIN/GLOBULIN RATIO 1.3 (1.0-2.2); BILIRUBIN,TOTAL 0.5 mg/dL (0.2-1.0); CALCIUM 9.4 mg/dL (8.5-10.3); TOTAL PROTEIN 7.1 g/dL (6.7-8.2)
[2020-07-21 21:21] VITALS: BP 148/81
== END 2020-07-21 21:23 | disposition home or self-care (01) ==
LOC: ED 18:50
DX: R07.89 Other chest pain (principal); R11.0 Nausea; R53.1 Weakness; I10 Essential (primary) hypertension; Z86.711 Personal history of pulmonary embolism; Z86.718 Personal history of other venous thrombosis and embolism; Z79.01 Long term (current) use of anticoagulants
CPT/HCPCS: 36415; 80053; 83690; 84484; 85025; 93005; 99284

== ENCOUNTER 2021-03-27 10:08 | Outpatient (CLI) | payer OTHER | END 2021-03-27 10:09 | disposition EMS.NT | LOC: EMS 10:08 | DX: R11.2 Nausea with vomiting, unspecified (principal); K04.7 Periapical abscess without sinus ==

== ENCOUNTER 2021-03-27 10:30 | Emergency (ER) | payer OTHER ==
[2021-03-27] MEDS ORDERED: ONDANSETRON 4 MG/2 ML VIAL IVP STA (11:05)
--- NOTE | 2021-03-27 11:05 | ED Physician Documentation ---
History of Present Illness - Stated complaint Stated Complaint: VOMITING - Chief complaint Chief Complaint: General - History obtained from History obtained from: Patient - Additonal information Additional information: 65-year-old gentleman with obesity, history of sleep apnea, history of PE on anticoagulation was seen recently by his dentist for dental infection and started on penicillin. He also had some tramadol. He was taking tramadol overnight and up till this morning at 830. He went to a meeting at the [employer] and started to feel weak all over, foggy and started dry heaving. He was eval uated by paramedics who reportedly did a normal EKG and now he presents for chief complaint of nausea and vomiting. No abdominal pain, chest pain, fevers. Review of Systems Constitutional: reports: Fatigue. denies: Fever, Chills Nose: denies: Rhinorrhea / runny nose, Congestion Throat: reports: Dental pain / toothache Cardiac: denies: Chest pain / pressure, Palpitations Respiratory: denies: Dyspnea PD PAST MEDICAL HISTORY - Past Medical History Cardiovascular: Hypertension, Deep vein thrombosis, Pulmonary embolism Respiratory: Sleep apnea, CPAP use Neuro: Peripheral neuropathy : Kidney stones HEENT: None Psych: Depression Musculoskeletal: Osteoarthritis Derm: Other - Past Surgical History Past Surgical History: Yes General: Appendectomy HEENT: Tonsil/Adenoidectomy - Present Medications Home Medications: Ambulatory Orders Medication Instructions Recorded Confirmed Albuterol Sulf [Ventolin Hfa 1 - 2 puffs INH Q4HR PRN #1 inhaler 08/18/19 07/21/20 Inhaler] Apixaban [Eliquis] 10 mg PO BID 30 Days #60 tablet 01/26/20 07/21/20 Losartan [Cozaar] 07/21/20 Ondansetron Odt [Zofran] 4 mg TL Q6H PRN #10 tablet 03/27/21 Oxycodone HCl/Acetaminophen 1 - 2 each PO Q6H PRN #14 tablet 03/27/21 [Percocet 5-325 mg Tablet] - Allergies Allergies/Adverse Reactions: Allergies Allergy/AdvReac Type Severity Reaction Status Date / Time No Known Drug Allergies Allergy Verified 03/27/21 10:46 - Social History Does the pt smoke?: No Smoking Status: Never smoker Does the pt drink ETOH?: No Does the pt have substance abuse?: No - Immunizations Immunizations are current?: Yes - POLST Patient has POLST: No PD ED PE NORMAL - Vitals Vital signs reviewed: Yes - General General: Alert and oriented X 3, Other (Very slightly sleepy and holding a vomit bag with nothing in it) - HEENT HEENT: Other (Smaller but not pinpoint pupils, both reactive) - Neck Neck: Supple, no meningeal sign, No bony TTP - Cardiac Cardiac: RRR, No murmur - Respiratory Respiratory: No respiratory distress, Clear bilaterally - Abdomen Abdomen: Soft, Non tender - Back Back: No spinal TTP - Derm Derm: Normal color, Warm and dry - Extremities Extremities: No edema, No calf tenderness / cord - Neuro Neuro: Alert and oriented X 3, Normal speech Eye Opening: Spontaneous Motor: Obeys Commands Verbal: Oriented GCS Score: 15 Results - Vitals Vitals: Vital Signs - 24 hr 03/27/21 10:38 Temperature 36.8 C Heart Rate 55 L Respiratory 16 Rate Blood Pressure 140/97 H O2 Saturation 97 Oxygen O2 Source Room air - Labs Labs: Laboratory Tests 03/27/21 03/27/21 11:30 11:30 WBC 6.2 RBC 4.81 Hgb 15.1 Hct 43.9 MCV 91.3 MCH 31.4 H MCHC 34.4 RDW 12.9 Plt Count 181 MPV 9.5 Neut # (Auto) 5.0 Lymph # (Auto) 0.9 L [place] # (Auto) 0.3 Eos # (Auto) 0.0 Baso # (Auto) 0.0 Absolute Nucleated RBC 0.00 Nucleated RBC % 0.0 Sodium 135 Potassium 4.2 Chloride 99 L Carbon Dioxide 28 Anion Gap 8.0 BUN 16 Creatinine 0.9 Estimated GFR (MDRD) 85 L Glucose 141 H Calcium 9.0 PD MEDICAL DECISION MAKING - ED course ED course: 65-year-old gentleman presents with vomiting and feeling foggy after taking tramadol for a dental infection. States that in the past oxycodone has not done this. After some IV fluids and Zofran he felt much better. Labs were unremarkable. I am prescribing a short course of short-acting opioid pain medication for this patient. I have reviewed the patients LEAD SETTER and no concerning findings were noted. I have discussed that the opioids are for short term therapy only, and will not be refilled from the ED. Departure - Departure Disposition: 01 Home, Self Care Clinical Impression: Medication side effect, Nausea Condition: Good Record reviewed to determine appropriate education?: Yes Instructions: ED Abscess Tooth Prescriptions: Oxycodone HCl/Acetaminophen [Percocet 5-325 mg Tablet] 1 - 2 each PO Q6H PRN #14 tablet PRN Reason: pain Ondansetron Odt [Zofran] 4 mg TL Q6H PRN #10 tablet PRN Reason: Nausea / Vomiting Comments: Prescription sent electronically to [facility] in [place]. Continue penicillin, avoid tramadol Follow-up with your dentist as scheduled. I am prescribing a short course of narcotic pain medication for you. These are potentially dangerous and addictive medications that should be used carefully. These medications may constipate you. Take an lbbl-vbw-syalprt stool softener (docusate) twice daily with plenty of water while taking these medications. If you go 24 hours without a bowel movement, take dkhv-hev-ckohkax miralax, per package instructions. Do not drink or drive while taking these medications. If you received narcotic or sedating medications while in the emergency department, do not drive for 24 hours. Store this medication in a safe, secure place and out of reach of children. It is a violation of federal law to give or sell this medication to another person or to use in a manner other than prescribed. The ED will not refill narcotic prescriptions, including prescriptions lost or stolen. To dispose of unwanted medications: 1. [facility] at [address] in [place] has a medication drop box. They accept prescription medications (in pill form) Monday through Monday 9:00 a.m. to 5:00 p.m. 2. [facility] [employer] accepts prescription medications (in pill form only) for disposal year round. Call for more information. 3. Contact the [facility] for the next [facility] sponsored prescription drug collection event. , [phone], or [phone]; Note that many narcotic pain relievers also contain Tylenol/acetaminophen. Please ensure that your total dose of acetaminophen from all sources does not exceed 3 g (3000 mg) per day.
[2021-03-27 12:00] LABS: BASOPHILS % (AUTO) 0.2 %; EOSINOPHILS % (AUTO) 0.3 %; HCT - HEMATOCRIT 43.9 % (42.0-52.0); HGB - HEMOGLOBIN 15.1 g/dL (14.0-18.0); LYMPHOCYTES # (AUTO) 0.9 10^3/uL (1.5-3.5); LYMPHOCYTES % (AUTO) 14.1 %; MEAN CORPUSCULAR HEMOGLOBIN 31.4 pg (27.0-31.0); MEAN CORPUSCULAR HGB CONC 34.4 g/dL (32.0-36.0); MEAN CORPUSCULAR VOLUME 91.3 fL (80.0-94.0); MEAN PLATELET VOLUME 9.5 fL (7.4-11.4); MONOCYTES # (AUTO) 0.3 10^3/uL (0.0-1.0); MONOCYTES % (AUTO) 5.3 %; NEUTROPHILS % (AUTO) 79.8 %; PLT - PLATELET COUNT 181 10^3/uL (130-450); RED BLOOD COUNT 4.81 10^6/uL (4.70-6.10); RED CELL DISTRIBUTION WIDTH 12.9 % (12.0-15.0); WHITE BLOOD COUNT 6.2 x10^3/uL (4.8-10.8)
[2021-03-27 12:08] LABS: CREATININE 0.9 mg/dL (0.6-1.2); POTASSIUM 4.2 mmol/L (3.5-5.0)
[2021-03-27 12:36] VITALS: BP 126/70
== END 2021-03-27 12:35 | disposition home or self-care (01) ==
LOC: ED 10:30
DX: R11.2 Nausea with vomiting, unspecified (principal); R41.0 Disorientation, unspecified; T40.425A Adverse effect of tramadol, initial encounter; K04.7 Periapical abscess without sinus; I10 Essential (primary) hypertension; Z86.711 Personal history of pulmonary embolism; Z79.01 Long term (current) use of anticoagulants
CPT/HCPCS: 36415; 80048; 85025; 96374; 99284

== ENCOUNTER 2021-07-27 18:37 | Emergency (ER) | payer OTHER ==
--- NOTE | 2021-07-27 19:13 | XRAY Report ---
PROCEDURE: Chest 1 View X-Ray INDICATIONS: Chest pain TECHNIQUE: One view of the chest was acquired. COMPARISON: 07/21/2020 FINDINGS: Surgical changes and devices: None. Lungs and pleura: No pleural effusions or pneumothorax. Lungs are clear. Mediastinum: Mediastinal contours appear normal. Heart size is normal. Bones and chest wall: No suspicious bony lesions. Overlying soft tissues appear unremarkable. IMPRESSION: Chest without acute cardiopulmonary abnormalities. No focal airspace disease. Reviewed by: Cirilo Hawkins MD on 07/27/2021 6:12 PM [facility] Approved by: Cirilo Hawkins MD on 07/27/2021 6:12 PM [facility] Station ID: [id number]
[2021-07-27 19:17] LABS: BASOPHILS % (AUTO) 0.2 %; EOSINOPHILS % (AUTO) 0.5 %; HCT - HEMATOCRIT 46.8 % (42.0-52.0); HGB - HEMOGLOBIN 16.3 g/dL (14.0-18.0); LYMPHOCYTES # (AUTO) 2.1 10^3/uL (1.5-3.5); LYMPHOCYTES % (AUTO) 32.4 %; MEAN CORPUSCULAR HEMOGLOBIN 31.2 pg (27.0-31.0); MEAN CORPUSCULAR HGB CONC 34.8 g/dL (32.0-36.0); MEAN CORPUSCULAR VOLUME 89.7 fL (80.0-94.0); MEAN PLATELET VOLUME 9.4 fL (7.4-11.4); MONOCYTES # (AUTO) 0.3 10^3/uL (0.0-1.0); NEUTROPHILS % (AUTO) 61.4 %; PLT - PLATELET COUNT 205 10^3/uL (130-450); RED BLOOD COUNT 5.22 10^6/uL (4.70-6.10); RED CELL DISTRIBUTION WIDTH 12.8 % (12.0-15.0); WHITE BLOOD COUNT 6.6 x10^3/uL (4.8-10.8)
[2021-07-27 19:35] LABS: ALBUMIN/GLOBULIN RATIO 1.3 (1.0-2.2); BILIRUBIN,TOTAL 0.3 mg/dL (0.2-1.0); CALCIUM 9.3 mg/dL (8.5-10.3); CREATININE 0.9 mg/dL (0.6-1.2); POTASSIUM 3.8 mmol/L (3.5-5.0)
--- NOTE | 2021-07-27 19:41 | ED Physician Documentation ---
PD HPI CHEST PAIN - Stated complaint Stated Complaint: CP/NAUSEA/HEADACHE - Chief complaint Chief Complaint: Cardiac - History obtained from History obtained from: Patient - History of Present Illness Pain level max: 4 Pain level now: 1 Quality: Tearing Location: Right chest Radiation: No: Jaw, Neck, Back, Abdominal, Left upper extremity, Right upper extremity Improved by: Nothing Worsened by: Movement, Palpation Associated symptoms: No: Shortness of air, Diaphoresis, Nausea, Vomiting, Feeling faint / dizzy, General Weakness, Palpitations, Cough - Additional information Additional information: Patient is a 65-year-old gentleman who presents to the emergency department with chest pain that has been fairly constant for the past 36 hours. He states that it started after his told him that she did not love him anymore. He states that this was distressing to him. He felt a tearing pain on the right side of his chest. Nothing seems to make it better or worse. He is on Eliquis. Has a history of a PE on the left side, but states that that felt very different. Review of Systems Ten Systems: 10 systems reviewed and negative Constitutional: denies: Fever, Chills Ears: denies: Ear pain Nose: denies: Rhinorrhea / runny nose, Congestion Throat: denies: Sore throat Respiratory: denies: Dyspnea, Cough, Wheezing : denies: Dysuria Skin: denies: Rash Musculoskeletal: denies: Neck pain, Back pain Neurologic: denies: Headache PD PAST MEDICAL HISTORY - Past Medical History Cardiovascular: Hypertension, Deep vein thrombosis, Pulmonary embolism Respiratory: Sleep apnea, CPAP use Neuro: Peripheral neuropathy : Kidney stones HEENT: None Psych: Depression Musculoskeletal: Osteoarthritis Derm: Other - Past Surgical History Past Surgical History: Yes General: Appendectomy HEENT: Tonsil/Adenoidectomy - Present Medications Home Medications: Ambulatory Orders Medication Instructions Recorded Confirmed Albuterol Sulf [Ventolin Hfa 1 - 2 puffs INH Q4HR PRN #1 inhaler 08/18/19 07/21/20 Inhaler] Apixaban [Eliquis] 10 mg PO BID 30 Days #60 tablet 01/26/20 07/21/20 Losartan [Cozaar] 07/21/20 Ondansetron Odt [Zofran] 4 mg TL Q6H PRN #10 tablet 03/27/21 Oxycodone HCl/Acetaminophen 1 - 2 each PO Q6H PRN #14 tablet 03/27/21 [Percocet 5-325 mg Tablet] - Allergies Allergies/Adverse Reactions: Allergies Allergy/AdvReac Type Severity Reaction Status Date / Time No Known Drug Allergies Allergy Verified 03/27/21 10:46 - Social History Does the pt smoke?: No Smoking Status: Never smoker Does the pt drink ETOH?: No Does the pt have substance abuse?: No - Immunizations Immunizations are current?: Yes - POLST Patient has POLST: No PD ED PE NORMAL - Vitals Vital signs reviewed: Yes - General General: Alert and oriented X 3, No acute distress, Well developed/nourished - HEENT HEENT: PERRL, Moist mucous membranes - Neck Neck: Supple, no meningeal sign - Cardiac Cardiac: RRR, No murmur - Respiratory Respiratory: Clear bilaterally, Other (Tender palpation over the right anterior chest wall. Reproduces his pain.) - Abdomen Abdomen: Soft, Non tender, Non distended - Back Back: No spinal TTP - Derm Derm: Warm and dry - Extremities Extremities: No calf tenderness / cord - Neuro Neuro: Alert and oriented X 3 - Psych Psych: Normal mood, Normal affect Results - Vitals Vitals: Vital Signs - 24 hr 07/27/21 07/27/21 07/27/21 18:43 18:52 19:22 Temperature 36.3 C L 36.5 C Heart Rate 72 72 72 Respiratory 16 16 16 Rate Blood Pressure 153/88 H 153/88 H 160/80 H O2 Saturation 99 99 97 07/27/21 07/27/21 19:30 20:00 Temperature Heart Rate 74 64 Respiratory 16 14 Rate Blood Pressure 162/80 H 160/87 H O2 Saturation 98 98 Oxygen O2 Source Room air - EKG (time done) 1846 Rate: Rate (enter#) (70) Rhythm: NSR [place]: Normal Intervals: Normal MT QRS: Normal Ischemia: Normal ST segments - Labs Labs: Laboratory Tests 07/27/21 07/27/21 07/27/21 19:10 19:10 19:10 WBC 6.6 RBC 5.22 Hgb 16.3 Hct 46.8 MCV 89.7 MCH 31.2 H MCHC 34.8 RDW 12.8 Plt Count 205 MPV 9.4 Neut # (Auto) 4.0 Lymph # (Auto) 2.1 [place] # (Auto) 0.3 Eos # (Auto) 0.0 Baso # (Auto) 0.0 Absolute Nucleated RBC 0.00 Nucleated RBC % 0.0 Sodium 138 Potassium 3.8 Chloride 104 Carbon Dioxide 25 Anion Gap 9.0 BUN 19 Creatinine 0.9 Estimated GFR (MDRD) 85 L Glucose 108 H Calcium 9.3 Total Bilirubin 0.3 AST 21 ALT 23 Alkaline Phosphatase 63 Troponin I High Sens 6.0 B-Natriuretic Peptide Total Protein 7.0 Albumin 4.0 Globulin 3.0 Albumin/Globulin Ratio 1.3 Lipase 41 07/27/21 19:10 WBC RBC Hgb Hct MCV MCH MCHC RDW Plt Count MPV Neut # (Auto) Lymph # (Auto) [place] # (Auto) Eos # (Auto) Baso # (Auto) Absolute Nucleated RBC Nucleated RBC % Sodium Potassium Chloride Carbon Dioxide Anion Gap BUN Creatinine Estimated GFR (MDRD) Glucose Calcium Total Bilirubin AST ALT Alkaline Phosphatase Troponin I High Sens B-Natriuretic Peptide 16 Total Protein Albumin Globulin Albumin/Globulin Ratio Lipase - Rads (name of study) cxr Radiology: Final report received, EMP read contemporaneously, See rad report (Chest without acute cardiopulmonary abnormalities. No focal airspace disease. ) PD MEDICAL DECISION MAKING - ED course Complexity details: reviewed results, re-evaluated patient, considered differential (No ST elevation AL, no aortic dissection, no PE, no tension pneumothorax, no aortic aneurysm), d/w patient ED course: 65-year-old male with right-sided chest wall pain for the past 36 hours. Worse with movement and palpation. Reproducible with palpation. No acute findings on EKG, chest x-ray or laboratory testing. Negative troponin. Negative BNP. No evidence of pulmonary edema. No evidence of recurrent PE. Patient is on Eliquis. Patient counseled regarding signs and symptoms for which I believe and urgent re-evaluation would be necessary. Patient with good understanding of and agreement to plan and is comfortable going home at this time This document was made in part using voice recognition software. While efforts are made to proofread this document, sound alike and grammatical errors may occur. Departure - Departure Disposition: 01 Home, Self Care Clinical Impression: Chest pain Qualifiers: Chest pain type: unspecified Qualified Code(s): R07.9 - Chest pain, unspecified Condition: Good Instructions: ED Chest Pain Atypical Unkn Cause Follow-Up: Alden Franco ARNP [Primary Care Provider] - Within 1 week Comments: Please continue your current medications at home. Please return if you worsen. Your x-rays, EKG and laboratory testing did not show any acute abnormalities tonight. Discharge Date/Time: 07/27/21 20:33
[2021-07-27 20:02] VITALS: BP 160/87
== END 2021-07-27 20:33 | disposition home or self-care (01) ==
LOC: ED 18:37
DX: R07.9 Chest pain, unspecified (principal)
CPT/HCPCS: 36415; 80053; 83690; 83880; 84484; 85025; 93005; 99284

== ENCOUNTER 2022-08-01 16:00 | Emergency (ER) | payer OTHER ==
--- NOTE | 2022-08-01 16:29 | ED Physician Documentation ---
PD HPI CHEST PAIN - Stated complaint Stated Complaint: CP/DIZZY/NAUSEA - Chief complaint Chief Complaint: Cardiac - History obtained from History obtained from: Patient - Additional information Additional information: 66-year-old gentleman on anticoagulation for history of PE, also history of hypertension. He has no history of heart disease. He was trying to break rusted bolts on his van using a wrench and suddenly felt substernal chest pain. He thinks it might have been related to the actual movements of the wrench. It has gotten somewhat better since then. He took aspirin prior to arrival. There is no associated shortness of breath. It does radiate to the jaw. No radiation to the back. This started around 2:45 PM today. PD PAST MEDICAL HISTORY - Past Medical History Cardiovascular: Hypertension, Deep vein thrombosis, Pulmonary embolism Respiratory: Sleep apnea, CPAP use Neuro: Peripheral neuropathy : Kidney stones HEENT: None Psych: Depression Musculoskeletal: Osteoarthritis Derm: Other - Past Surgical History Past Surgical History: Yes General: Appendectomy HEENT: Tonsil/Adenoidectomy - Present Medications Home Medications: Ambulatory Orders Medication Instructions Recorded Confirmed Apixaban [Eliquis] 10 mg PO BID 30 Days #60 tablet 01/26/20 08/01/22 Losartan Potassium [Cozaar] 100 mg PO DAILY 08/01/22 08/01/22 - Allergies Allergies/Adverse Reactions: Allergies Allergy/AdvReac Type Severity Reaction Status Date / Time No Known Drug Allergies Allergy Verified 08/01/22 16:10 - Social History Does the pt smoke?: No Smoking Status: Never smoker Does the pt drink ETOH?: No Does the pt have substance abuse?: No - Immunizations Immunizations are current?: Yes - POLST Patient has POLST: No PD ED PE NORMAL - Vitals Vital signs reviewed: Yes - General General: Alert and oriented X 3, No acute distress - Cardiac Cardiac: RRR, No murmur, Other (Mild anterior chest wall tenderness that repeat recreates his pain.) - Respiratory Respiratory: No respiratory distress, Clear bilaterally - Abdomen Abdomen: Normal bowel sounds, Soft, Non tender - Back Back: No CVA TTP, No spinal TTP - Derm Derm: Normal color, Warm and dry - Extremities Extremities: No edema, No calf tenderness / cord - Neuro Neuro: Alert and oriented X 3, Normal speech Results - Vitals Vitals: Vital Signs - 24 hr 08/01/22 08/01/22 08/01/22 16:04 16:47 17:14 Temperature 36.5 C Heart Rate 54 L 57 L 55 L Respiratory 16 21 20 Rate Blood Pressure 177/93 H 168/97 H 163/120 H O2 Saturation 100 99 99 08/01/22 08/01/22 18:55 19:25 Temperature Heart Rate 54 L 60 Respiratory 18 19 Rate Blood Pressure 164/94 H 160/93 H O2 Saturation 99 98 Oxygen O2 Source Room air - EKG (time done) 1613 Rate: Rate (enter#) (55) Rhythm: NSR [place]: Normal Intervals: Normal ME QRS: LVH Ischemia: Normal ST segments. No: ST elevation c/w ischemia, ST depression 1709 Rate: Rate (enter#) (59) Rhythm: NSR [place]: Normal Intervals: Normal ME QRS: LVH Ischemia: Normal ST segments - Labs Labs: Laboratory Tests 08/01/22 08/01/22 08/01/22 16:28 16:28 16:28 WBC 7.4 RBC 5.05 Hgb 15.4 Hct 45.2 MCV 89.5 MCH 30.5 MCHC 34.1 RDW 12.4 Plt Count 196 MPV 9.4 Neut # (Auto) 5.8 Lymph # (Auto) 1.1 L [place] # (Auto) 0.4 Eos # (Auto) 0.0 Baso # (Auto) 0.0 Absolute Nucleated RBC 0.00 Nucleated RBC % 0.0 Sodium 134 L Potassium 4.1 Chloride 101 Carbon Dioxide 28 Anion Gap 5.0 L BUN 13 Creatinine 0.9 Estimated GFR (MDRD) 85 L Glucose 100 Calcium 9.3 Total Bilirubin 0.6 AST 20 ALT 34 Alkaline Phosphatase 69 Troponin I High Sens 4.8 Total Protein 6.8 Albumin 3.7 Globulin 3.1 Albumin/Globulin Ratio 1.2 Lipase 32 08/01/22 18:29 WBC RBC Hgb Hct MCV MCH MCHC RDW Plt Count MPV Neut # (Auto) Lymph # (Auto) [place] # (Auto) Eos # (Auto) Baso # (Auto) Absolute Nucleated RBC Nucleated RBC % Sodium Potassium Chloride Carbon Dioxide Anion Gap BUN Creatinine Estimated GFR (MDRD) Glucose Calcium Total Bilirubin AST ALT Alkaline Phosphatase Troponin I High Sens 5.5 Total Protein Albumin Globulin Albumin/Globulin Ratio Lipase PD Medical Decision Making - ED course ED course: 66-year-old gentleman with with what sounds like frankly muscular chest pain that started while actively using a wrench on a locked bolt. His EKG is nonischemic and subsequently a repeat EKG was done without significant interval change. CBC reviewed and normal. CMP reviewed and normal. Initial troponin normal at 4.8 and repeated at 2 hours without significant delta change at 5.5. He declined anything for pain here and did not appear ill or an extremis. Departure - Departure Disposition: 01 Home, Self Care Clinical Impression: Chest pain Condition: Good Record reviewed to determine appropriate education?: Yes Instructions: ED Chest Pain NonCardiac Comments: No evidence of heart issues or damage tonight. Return for new or worsening symptoms. Follow-up with your primary care physician, next available appointment. They may want to do stress testing on you. Discharge Date/Time: 08/01/22 19:27
[2022-08-01 16:41] LABS: EOSINOPHILS % (AUTO) 0.1 %; HCT - HEMATOCRIT 45.2 % (42.0-52.0); HGB - HEMOGLOBIN 15.4 g/dL (14.0-18.0); LYMPHOCYTES # (AUTO) 1.1 10^3/uL (1.5-3.5); LYMPHOCYTES % (AUTO) 14.7 %; MEAN CORPUSCULAR HEMOGLOBIN 30.5 pg (27.0-31.0); MEAN CORPUSCULAR HGB CONC 34.1 g/dL (32.0-36.0); MEAN CORPUSCULAR VOLUME 89.5 fL (80.0-94.0); MEAN PLATELET VOLUME 9.4 fL (7.4-11.4); MONOCYTES # (AUTO) 0.4 10^3/uL (0.0-1.0); MONOCYTES % (AUTO) 5.4 %; NEUTROPHILS # (AUTO) 5.8 10^3/uL (1.5-6.6); NEUTROPHILS % (AUTO) 79.3 %; PLT - PLATELET COUNT 196 10^3/uL (130-450); RED BLOOD COUNT 5.05 10^6/uL (4.70-6.10); RED CELL DISTRIBUTION WIDTH 12.4 % (12.0-15.0); WHITE BLOOD COUNT 7.4 x10^3/uL (4.8-10.8)
--- NOTE | 2022-08-01 16:55 | XRAY Report ---
PROCEDURE: Chest 1 View X-Ray INDICATIONS: Chest Pain TECHNIQUE: One view of the chest was acquired. COMPARISON: Chest x-ray 07/27/2021 FINDINGS: Surgical changes and devices: None. Lungs and pleura: No pleural effusions or pneumothorax. Lungs are clear. Mediastinum: Mediastinal contours appear normal. Heart size is normal. Bones and chest wall: No suspicious bony lesions. Overlying soft tissues appear unremarkable. IMPRESSION: No acute pulmonary process. Reviewed by: Deana Proctor MD on 08/01/2022 4:54 PM [facility] Approved by: Deana Proctor MD on 08/01/2022 4:54 PM [facility] Station ID: [id number]
[2022-08-01 17:06] LABS: ALBUMIN 3.7 g/dL (3.2-5.5); ALBUMIN/GLOBULIN RATIO 1.2 (1.0-2.2); BILIRUBIN,TOTAL 0.6 mg/dL (0.2-1.0); CALCIUM 9.3 mg/dL (8.5-10.3); CREATININE 0.9 mg/dL (0.6-1.2); POTASSIUM 4.1 mmol/L (3.5-5.0); TOTAL PROTEIN 6.8 g/dL (6.7-8.2)
[2022-08-01 19:26] VITALS: BP 160/93
== END 2022-08-01 19:27 | disposition home or self-care (01) ==
LOC: ED 16:00
DX: R07.9 Chest pain, unspecified (principal); I10 Essential (primary) hypertension; Z86.718 Personal history of other venous thrombosis and embolism; Z79.01 Long term (current) use of anticoagulants
CPT/HCPCS: 36415; 80053; 83690; 84484; 85025; 93005; 99284

== ENCOUNTER 2022-10-03 18:14 | Emergency (ER) | payer OTHER ==
--- NOTE | 2022-10-03 19:04 | Ultrasound Report ---
PROCEDURE: Duplex Ext Veins Left INDICATIONS: Left leg pain and swelling TECHNIQUE: Real-time imaging, as well as color and pulse Doppler interrogation, were performed of the lower extr emity deep veins from the inguinal ligament to the popliteal fossa. COMPARISON: None. FINDINGS: The deep veins are normally compressible, and free of intraluminal thrombus. Color and pu lse Doppler demonstrate normal phasic intraluminal flow. There is normal augmentation response to di stal compression maneuver. IMPRESSION: No evidence of left lower extremity DVT. Reviewed by: Greer John MD on 10/03/2022 7:03 PM PDT Approved by: Greer John MD on 10/03/2022 7:03 PM PDT Station ID: [id number]
[2022-10-03] MEDS ORDERED: cephALEXin 250 MG CAPSULE PO STA (19:43)
--- NOTE | 2022-10-03 19:43 | ED Physician Documentation ---
PD HPI LOWER EXT INJURY - Stated complaint Stated Complaint: LUMP ON LFT LEG - Chief complaint Chief Complaint: Ext Problem - History obtained from History obtained from: Patient (He felt a lump in the anterior left steele about 4 days ago which then spread out and became painful. He was seen at the walk-in clinic and there was a concern for DVT so he was sent here for ultrasound.) PD PAST MEDICAL HISTORY - Past Medical History Cardiovascular: Hypertension, Deep vein thrombosis, Pulmonary embolism Respiratory: Sleep apnea, CPAP use Neuro: Peripheral neuropathy Endocrine/Autoimmune: None : Kidney stones HEENT: None Psych: Depression Musculoskeletal: Osteoarthritis Derm: Other - Past Surgical History Past Surgical History: Yes General: Appendectomy HEENT: Tonsil/Adenoidectomy - Present Medications Home Medications: Ambulatory Orders Medication Instructions Recorded Confirmed Apixaban [Eliquis] 10 mg PO BID 30 Days #60 tablet 01/26/20 08/01/22 Losartan Potassium [Cozaar] 100 mg PO DAILY 08/01/22 08/01/22 cephALEXin [Keflex] 500 mg PO Q6H #28 cap 10/03/22 - Allergies Allergies/Adverse Reactions: Allergies Allergy/AdvReac Type Severity Reaction Status Date / Time No Known Drug Allergies Allergy Verified 10/03/22 18:22 - Social History Does the pt smoke?: No Smoking Status: Never smoker Does the pt drink ETOH?: No Does the pt have substance abuse?: No - Immunizations Immunizations are current?: Yes - POLST Patient has POLST: No PD ED PE NORMAL - Vitals Vital signs reviewed: Yes - General General: Alert and oriented X 3, No acute distress - Extremities Extremities: Other (Warmth and redness to the anterior left steele consistent with cellulitis) - Neuro Neuro: Alert and oriented X 3, Normal speech Results - Vitals Vitals: Vital Signs - 24 hr 10/03/22 10/03/22 18:22 19:48 Temperature 36.6 C Heart Rate 66 74 Respiratory 18 18 Rate Blood Pressure 150/72 H 153/86 H O2 Saturation 98 99 Oxygen O2 Source Room air - Rads (name of study) Doppler ultrasound left leg negative for DVT Relevant Findings:: Final report received PD Medical Decision Making - ED course ED course: 66-year-old gentleman with a mild cellulitis of the left leg. He was sent from urgent care to rule out DVT and this was done and negative. He was treated with Keflex. Departure - Departure Disposition: 01 Home, Self Care Clinical Impression: Cellulitis Qualifiers: Site of cellulitis: extremity Site of cellulitis of extremity: lower extremity Laterality: left Qualified Code(s): L03.116 - Cellulitis of left lower limb Condition: Good Record reviewed to determine appropriate education?: Yes Instructions: ED Infec Skin Cellulitis Prescriptions: cephALEXin [Keflex] 500 mg PO Q6H #28 cap Comments: I sent your prescription electronically to [facility]. Elevate the leg. Return if worsening or if you run a high fever. Follow-up with your primary care physician within the week for recheck. Discharge Date/Time: 10/03/22 19:49
[2022-10-03 19:49] VITALS: BP 153/86
== END 2022-10-03 19:49 | disposition home or self-care (01) ==
LOC: ED 18:14
DX: L03.116 Cellulitis of left lower limb (principal); I10 Essential (primary) hypertension; G62.9 Polyneuropathy, unspecified; Z86.711 Personal history of pulmonary embolism; Z79.01 Long term (current) use of anticoagulants
CPT/HCPCS: 93971; 99283; 99284; A9270

== ENCOUNTER 2023-10-15 21:56 | Emergency (ER) | payer OTHER ==
[2023-10-15 22:49] VITALS: O2SAT 100
[2023-10-16] MEDS: MECLIZINE 12.5 MG TABLET PO STA (00:41)
[2023-10-16] MEDS: ONDANSETRON 4 MG/2 ML VIAL IVP STA (00:55)
[2023-10-16] MEDS: SODIUM CHLORIDE 0.9% 1,000 ML IV STA (00:55)
[2023-10-16 01:10] LABS: BASOPHILS % (AUTO) 0.2 %; EOSINOPHILS # (AUTO) 0.1 10^3/uL (0.0-0.7); EOSINOPHILS % (AUTO) 0.8 %; HCT - HEMATOCRIT 45.3 % (42.0-52.0); LYMPHOCYTES # (AUTO) 2.1 10^3/uL (1.5-3.5); LYMPHOCYTES % (AUTO) 32.2 %; MEAN CORPUSCULAR HGB CONC 33.1 g/dL (32.0-36.0); MEAN CORPUSCULAR VOLUME 90.6 fL (80.0-94.0); MEAN PLATELET VOLUME 9.3 fL (7.4-11.4); MONOCYTES # (AUTO) 0.5 10^3/uL (0.0-1.0); MONOCYTES % (AUTO) 6.8 %; NEUTROPHILS % (AUTO) 59.7 %; PLT - PLATELET COUNT 191 10^3/uL (130-450); RED CELL DISTRIBUTION WIDTH 12.9 % (12.0-15.0); WHITE BLOOD COUNT 6.7 x10^3/uL (4.8-10.8)
[2023-10-16 01:24] LABS: ALBUMIN 3.6 g/dL (3.2-5.5); ALBUMIN/GLOBULIN RATIO 1.6 (1.0-2.2); BILIRUBIN,TOTAL 0.3 mg/dL (0.2-1.0); CALCIUM 9.2 mg/dL (8.5-10.3); CREATININE 1.1 mg/dL (0.6-1.3); POTASSIUM 3.9 mmol/L (3.5-4.5); TOTAL PROTEIN 5.9 g/dL (6.4-8.9)
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
[2023-10-16 02:32] VITALS: BP 150/94
== END 2023-10-16 02:26 | disposition home or self-care (01) ==
LOC: ED 21:56
DX: K52.9 Noninfective gastroenteritis and colitis, unspecified (principal); E86.0 Dehydration; H81.12 Benign paroxysmal vertigo, left ear
CPT/HCPCS: 36415; 80053; 83690; 85025; 96361; 96374; 99283; 99284; A9270